=== PATIENT | female | born 1935 | race Caucasian/White ===

== ENCOUNTER 2018-03-11 11:34 | Emergency (ER) | payer MEDICARE, BC ==
[~2018-03-11] VITALS: Ht 162.6 cm; Wt 53.6 kg
[2018-03-11 12:02] LABS: BASOPHILS # (AUTO) 0.2 X10'3 (0-0.2); BASOPHILS % (AUTO) 2.7 % (0-1); EOSINOPHILS # (AUTO) 0.9 X10'3 (0-0.9); EOSINOPHILS % (AUTO) 10.3 % (0-6); HEMATOCRIT 28.8 % (35.0-45.0); HEMOGLOBIN 9.5 g/dl (12.0-16.0); LYMPHOCYTES # (AUTO) 1.2 X10'3 (1.1-4.8); LYMPHOCYTES % (AUTO) 13.9 % (21-51); MEAN CORPUSCULAR HEMOGLOBIN 28.7 PG (27.0-31.0); MEAN CORPUSCULAR HGB CONC 33.1 % (33.0-36.5); MEAN CORPUSCULAR VOLUME 86.8 FL (78-98); MEAN PLATELET VOLUME 8.2 FL (7.4-10.4); MONOCYTES # (AUTO) 0.5 X10'3 (0-0.9); MONOCYTES % (AUTO) 5.7 % (2-12); NEUTROPHILS # (AUTO) 5.6 X10'3 (1.8-7.7); NEUTROPHILS % (AUTO) 67.4 % (42-75); PLATELET COUNT 403 X10'3 (140-440); RED BLOOD COUNT 3.31 X10'6 (4.20-5.60); RED CELL DISTRIBUTION WIDTH 15.1 % (11.5-14.5); WHITE BLOOD COUNT 8.4 X10'3 (4.5-11.0)
[2018-03-11 12:17] LABS: ALANINE AMINOTRANSFERASE 16 U/L (12-78); ALBUMIN 3.5 G/DL (3.4-5.0); ALKALINE PHOSPHATASE 84 IU/L (46-116); ANION GAP 9 (8-16); ASPARTATE AMINO TRANSFERASE 13 U/L (10-37); BILIRUBIN,TOTAL 0.2 MG/DL (0.1-1.0); BLOOD UREA NITROGEN 21 MG/DL (7-18); BUN/CREATININE RATIO 20.6 (6.6-38.0); CALCIUM 9.3 MG/DL (8.5-10.1); CHLORIDE 104 MMOL/L (99-107); CREATININE 1.02 MG/DL (0.40-0.90); GLUCOSE 99 MG/DL (70-104); POTASSIUM 3.8 MMOL/L (3.5-5.1); SODIUM 141 MMOL/L (135-145); TOTAL CARBON DIOXIDE 28.3 MMOL/L (24-32); eGFR 52 ML/MIN
[2018-03-11 12:31] LABS: BASOPHILS % (MANUAL) 3 % (0-1); EOSINOPHILS % (MANUAL) 11 % (0-6); LARGE PLATELETS FEW; LYMPHOCYTES % (MANUAL) 16 % (21-51); MONOCYTES % (MANUAL) 5 % (2-12); NEUTROPHILS % (MANUAL) 65 % (42-75); PLATELET ESTIMATE NORMAL; POLYCHROMASIA FEW; TOTAL CELLS COUNTED 100
[2018-03-11 13:10] LABS: PARTIAL THROMBOPLASTIN TIME 24 SECONDS (22-32); PROTHROMBIN TIME 10.2 SECONDS (9.0-12.0)
[2018-03-11] MEDS ORDERED: normal saline 1000ML IV soln IVB ONE (13:40)
[2018-03-11] MEDS ORDERED: iron sucrose complex injection 100 MG in normal saline 100ml IV soln 95 ML IV ONE (13:45)
[2018-03-11 16:29] VITALS: BP 132/61
== END 2018-03-11 16:31 | disposition home or self-care (01) ==
LOC: ER 11:35
DX: D50.9 Iron deficiency anemia, unspecified (principal); R06.02 Shortness of breath; J45.909 Unspecified asthma, uncomplicated; Z98.890 Other specified postprocedural states; Z88.5 Allergy status to narcotic agent
CPT/HCPCS: 36415; 71045; 80053; 84484; 85025; 85610; 85730; 93005; 96365; 96366; 99285; J7030

== ENCOUNTER 2018-08-26 12:49 | Observation (INO) | payer MEDICARE, BC ==
[~2018-08-26] VITALS: Ht 157.5 cm; Wt 52.0 kg
[2018-08-26 14:13] LABS: BASOPHILS # (AUTO) 0.1 X10'3 (0-0.2); BASOPHILS % (AUTO) 1.2 % (0-1); EOSINOPHILS # (AUTO) 1.5 X10'3 (0-0.9); HEMATOCRIT 23.1 % (35.0-45.0); HEMOGLOBIN 7.3 g/dl (12.0-16.0); LYMPHOCYTES # (AUTO) 1.1 X10'3 (1.1-4.8); LYMPHOCYTES % (AUTO) 9.5 % (21-51); MEAN CORPUSCULAR HEMOGLOBIN 28.6 PG (27.0-31.0); MEAN CORPUSCULAR HGB CONC 31.7 % (33.0-36.5); MEAN CORPUSCULAR VOLUME 90.2 FL (78-98); MEAN PLATELET VOLUME 9.1 FL (7.4-10.4); MONOCYTES # (AUTO) 0.6 X10'3 (0-0.9); MONOCYTES % (AUTO) 5.6 % (2-12); NEUTROPHILS % (AUTO) 70.7 % (42-75); PLATELET COUNT 370 X10'3 (140-440); RED BLOOD COUNT 2.56 X10'6 (4.20-5.60); RED CELL DISTRIBUTION WIDTH 15.9 % (11.5-14.5)
[2018-08-26 14:25] LABS: ALANINE AMINOTRANSFERASE 16 U/L (12-78); ALBUMIN 3.4 G/DL (3.4-5.0); ALKALINE PHOSPHATASE 77 IU/L (46-116); ANION GAP 9 (8-16); ASPARTATE AMINO TRANSFERASE 14 U/L (10-37); BILIRUBIN,TOTAL 0.2 MG/DL (0.1-1.0); BLOOD UREA NITROGEN 23 MG/DL (7-18); BUN/CREATININE RATIO 22.5 (6.6-38.0); CALCIUM 9.2 MG/DL (8.5-10.1); CHLORIDE 103 MMOL/L (99-107); CREATININE 1.02 MG/DL (0.40-0.90); GLUCOSE 101 MG/DL (70-104); POTASSIUM 4.1 MMOL/L (3.5-5.1); SODIUM 141 MMOL/L (135-145); TOTAL CARBON DIOXIDE 29.2 MMOL/L (24-32); TOTAL PROTEIN 6.7 G/DL (6.4-8.2); eGFR 52 ML/MIN
[2018-08-26 14:38] LABS: WHITE BLOOD COUNT 12.3 X10'3 (4.5-11.0)
[2018-08-26 14:39] LABS: PLATELET ESTIMATE NORMAL
[2018-08-26 14:40] LABS: ANISOCYTOSIS 1+; POLYCHROMASIA 1+
[2018-08-26] MEDS ORDERED: magnesium hydroxide 30ml (MOM) UD suspension PO PRN (16:00)
[2018-08-26] MEDS ORDERED: mag hydrox/Alum hydrox/simeth 30ml oral suspension PO PRN (16:00)
[2018-08-26] MEDS ORDERED: acetaminophen 325mg tablet PO PRN ×2 (16:00)
[2018-08-26] MEDS ORDERED: ondansetron/PF 4mg/2ml inj IV PRN (16:00)
[2018-08-26 16:23] VITALS: BP 149/117
[2018-08-26 16:35] VITALS: BP 138/65
[2018-08-26 17:40] VITALS: BP 138/86
[2018-08-26 18:40] VITALS: BP 135/70
[2018-08-26 20:00] VITALS: BP 114/70
[2018-08-26] MEDS ORDERED: TRAM50TA2 PO (20:26)
[2018-08-26] MEDS ORDERED: BECL10.6 PO (20:29)
[2018-08-26] MEDS ORDERED: MONT10TA24 PO (20:29)
[2018-08-26] MEDS ORDERED: temazepam 15mg capsule PO PRN (21:00)
[2018-08-26 21:36] LABS: BASOPHILS # (AUTO) 0.2 X10'3 (0-0.2); BASOPHILS % (AUTO) 1.8 % (0-1); EOSINOPHILS # (AUTO) 1.6 X10'3 (0-0.9); EOSINOPHILS % (AUTO) 16.8 % (0-6); HEMATOCRIT 27.3 % (35.0-45.0); HEMOGLOBIN 8.8 g/dl (12.0-16.0); LYMPHOCYTES # (AUTO) 1.4 X10'3 (1.1-4.8); LYMPHOCYTES % (AUTO) 14.8 % (21-51); MEAN CORPUSCULAR HEMOGLOBIN 28.6 PG (27.0-31.0); MEAN CORPUSCULAR HGB CONC 32.4 % (33.0-36.5); MEAN CORPUSCULAR VOLUME 88.3 FL (78-98); MEAN PLATELET VOLUME 8.2 FL (7.4-10.4); MONOCYTES # (AUTO) 0.6 X10'3 (0-0.9); MONOCYTES % (AUTO) 6.6 % (2-12); NEUTROPHILS # (AUTO) 5.9 X10'3 (1.8-7.7); PLATELET COUNT 405 X10'3 (140-440); RED BLOOD COUNT 3.09 X10'6 (4.20-5.60); WHITE BLOOD COUNT 9.8 X10'3 (4.5-11.0)
== END 2018-08-26 22:20 | disposition home or self-care (01) ==
LOC: ER 12:49 → ED HOLD 16:00 → SUR 3N 18:10
PROVIDERS: ADMIT Family Medicine; ATTEND Family Medicine
DX: D64.9 Anemia, unspecified (principal); I10 Essential (primary) hypertension; J45.909 Unspecified asthma, uncomplicated; R42 Dizziness and giddiness; Z90.710 Acquired absence of both cervix and uterus
CPT/HCPCS: 36415; 36430; 80053; 82607; 82746; 85025; 86885; 86900; 86901; 86920; 87070; 99291; G0378; P9016

== ENCOUNTER 2021-02-22 11:24 | Emergency (ER) | payer MEDICARE, BC ==
[~2021-02-22] VITALS: Ht 157.5 cm; Wt 50.9 kg
[~2021-02-22 11:24] MED LIST: BECL10.6 PO; MONT10TA32 PO; TRAM50TA2 PO
[2021-02-22 13:32] LABS: EOSINOPHILS # (AUTO) 0.2 X10'3 (0-0.9); EOSINOPHILS % (AUTO) 2.3 % (0-6); HEMOGLOBIN 11.2 g/dl (12.0-16.0); LYMPHOCYTES # (AUTO) 0.9 X10'3 (1.1-4.8); MONOCYTES # (AUTO) 0.4 X10'3 (0-0.9)
[2021-02-22 13:33] LABS: BASOPHILS # (AUTO) 0.1 X10'3 (0-0.2); BASOPHILS % (AUTO) 1.5 % (0-1); HEMATOCRIT 35.2 % (35.0-45.0); LYMPHOCYTES % (AUTO) 10.6 % (21-51); MEAN CORPUSCULAR HEMOGLOBIN 29.3 PG (27.0-31.0); MEAN CORPUSCULAR HGB CONC 31.7 g/dL (33.0-36.5); MEAN CORPUSCULAR VOLUME 92.3 FL (78-98); MEAN PLATELET VOLUME 8.9 FL (7.4-10.4); NEUTROPHILS # (AUTO) 6.5 X10'3 (1.8-7.7); NEUTROPHILS % (AUTO) 80.6 % (42-75); PLATELET COUNT 348 X10'3 (140-440); RED BLOOD COUNT 3.82 X10'6 (4.20-5.60); WHITE BLOOD COUNT 8.1 X10'3 (4.5-11.0)
[2021-02-22 13:45] LABS: ALANINE AMINOTRANSFERASE 17 U/L (12-78); ALBUMIN 3.7 G/DL (3.4-5.0); ALBUMIN/GLOBULIN RATIO 1.3 (1.1-1.5); ALKALINE PHOSPHATASE 61 IU/L (46-116); ANION GAP 11 (8-16); ASPARTATE AMINO TRANSFERASE 9 U/L (10-37); BILIRUBIN,TOTAL 0.2 MG/DL (0.1-1.0); BLOOD UREA NITROGEN 23 MG/DL (7-18); BUN/CREATININE RATIO 22.5 (6.6-38.0); CALCIUM 9.4 MG/DL (8.5-10.1); CHLORIDE 107 MMOL/L (99-107); CREATININE 1.02 MG/DL (0.40-0.90); GLUCOSE 111 MG/DL (70-104); POTASSIUM 3.7 MMOL/L (3.5-5.1); SODIUM 146 MMOL/L (135-145); TOTAL PROTEIN 6.5 G/DL (6.4-8.2); eGFR 52 ML/MIN
[2021-02-22 13:59] LABS: ANISOCYTOSIS 2+; LARGE PLATELETS FEW; PLATELET ESTIMATE NORMAL
[2021-02-22 14:00] LABS: MICROCYTOSIS FEW
[2021-02-22 17:43] VITALS: BP 163/85
[2021-02-22] MEDS ORDERED: PRED20TA PO (18:02)
[2021-02-22] MEDS ORDERED: ALBU8HFA PO (18:02)
== END 2021-02-22 18:12 | disposition home or self-care (01) ==
LOC: ER 11:25
DX: R06.02 Shortness of breath (principal); R06.00 Dyspnea, unspecified; I10 Essential (primary) hypertension; J45.909 Unspecified asthma, uncomplicated; D64.9 Anemia, unspecified; Z98.890 Other specified postprocedural states; Z88.6 Allergy status to analgesic agent; Z86.2 Personal history of diseases of the blood and blood-forming organs and certain disorders involving the immune mechanism
CPT/HCPCS: 36415; 71045; 71250; 80053; 83880; 84484; 85008; 85025; 93005; 99285

== ENCOUNTER 2021-04-18 15:38 | Emergency (ER) | payer MEDICARE, BC ==
[~2021-04-18] VITALS: Ht 157.5 cm; Wt 50.0 kg
[2021-04-18] MEDS ORDERED: normal saline 1000ML IV soln IVB ONE (16:30)
[2021-04-18 17:21] LABS: BASOPHILS # (AUTO) 0.1 X10'3 (0-0.2); BASOPHILS % (AUTO) 0.6 % (0-1); EOSINOPHILS # (AUTO) 0.1 X10'3 (0-0.9); EOSINOPHILS % (AUTO) 1.4 % (0-6); HEMATOCRIT 29.9 % (35.0-45.0); HEMOGLOBIN 9.8 g/dl (12.0-16.0); LYMPHOCYTES # (AUTO) 1.2 X10'3 (1.1-4.8); LYMPHOCYTES % (AUTO) 11.9 % (21-51); MEAN CORPUSCULAR HEMOGLOBIN 29.6 PG (27.0-31.0); MEAN CORPUSCULAR HGB CONC 32.7 g/dL (33.0-36.5); MEAN CORPUSCULAR VOLUME 90.6 FL (78-98); MEAN PLATELET VOLUME 8.7 FL (7.4-10.4); MONOCYTES # (AUTO) 0.6 X10'3 (0-0.9); MONOCYTES % (AUTO) 5.7 % (2-12); NEUTROPHILS % (AUTO) 80.4 % (42-75); PLATELET COUNT 401 X10'3 (140-440); RED BLOOD COUNT 3.29 X10'6 (4.20-5.60); RED CELL DISTRIBUTION WIDTH 16.5 % (11.5-14.5)
[2021-04-18 17:34] LABS: ALANINE AMINOTRANSFERASE 14 U/L (12-78); ALBUMIN 3.6 G/DL (3.4-5.0); ALBUMIN/GLOBULIN RATIO 1.2 (1.1-1.5); ALKALINE PHOSPHATASE 55 IU/L (46-116); ANION GAP 9 (8-16); ASPARTATE AMINO TRANSFERASE 10 U/L (10-37); BILIRUBIN,TOTAL 0.2 MG/DL (0.1-1.0); BLOOD UREA NITROGEN 20 MG/DL (7-18); BUN/CREATININE RATIO 21.1 (6.6-38.0); CALCIUM 9.9 MG/DL (8.5-10.1); CHLORIDE 103 MMOL/L (99-107); CREATININE 0.95 MG/DL (0.40-0.90); GLUCOSE 95 MG/DL (70-104); POTASSIUM 3.2 MMOL/L (3.5-5.1); SODIUM 144 MMOL/L (135-145); TOTAL CARBON DIOXIDE 31.7 MMOL/L (24-32); TOTAL PROTEIN 6.6 G/DL (6.4-8.2); eGFR 56 ML/MIN
--- NOTE | 2021-04-18 18:38 | NUR ---
PT REFUSED URINE SAMPLE. STATED" IT HAS NOTHING TO DO WITH WHY I AM HERE".
--- NOTE | 2021-04-18 18:45 | NUR ---
PATIENT AWAITNG DISCHARGE , PLAN OF CARE UPDATED , IVF WITH NS 500 ML BOLUS RUNNING PATENT WITHOUT INCIDENT. ORTHOSTA VS COMPLETED
--- NOTE | 2021-04-18 19:49 | NUR ---
DR GARCIA NOTIFIED THAT PATIENT PASSED GAIT TEST WITHOUT INCIDENT AND THAT HER ORTOSTIC VS ARE COMPLETED
[2021-04-18 20:09] VITALS: BP 143/89
== END 2021-04-18 20:10 | disposition home or self-care (01) ==
LOC: ER 15:38
DX: R42 Dizziness and giddiness (principal); I10 Essential (primary) hypertension; J45.909 Unspecified asthma, uncomplicated; Z86.2 Personal history of diseases of the blood and blood-forming organs and certain disorders involving the immune mechanism; Z88.6 Allergy status to analgesic agent; Z79.899 Other long term (current) drug therapy
CPT/HCPCS: 36415; 80053; 85025; 93005; 99285; J7030

== ENCOUNTER 2022-01-27 19:07 | Emergency (ER) | payer MEDICARE, BC ==
[~2022-01-27] VITALS: Ht 157.5 cm; Wt 47.0 kg
[~2022-01-27 19:07] MED LIST changes: +MONT-40 PO; -MONT10TA32 PO
[2022-01-27 20:10] LABS: BASOPHILS # (AUTO) 0.1 X10'3 (0-0.2); BASOPHILS % (AUTO) 1.3 % (0-1); EOSINOPHILS # (AUTO) 0.2 X10'3 (0-0.9); EOSINOPHILS % (AUTO) 1.7 % (0-6); HEMATOCRIT 24.9 % (35.0-45.0); HEMOGLOBIN 7.7 g/dl (12.0-16.0); LYMPHOCYTES # (AUTO) 0.5 X10'3 (1.1-4.8); LYMPHOCYTES % (AUTO) 4.7 % (21-51); MEAN CORPUSCULAR HEMOGLOBIN 24.2 PG (27.0-31.0); MEAN CORPUSCULAR VOLUME 78.1 FL (78-98); MEAN PLATELET VOLUME 8.2 FL (7.4-10.4); MONOCYTES # (AUTO) 0.5 X10'3 (0-0.9); MONOCYTES % (AUTO) 4.3 % (2-12); NEUTROPHILS # (AUTO) 9.3 X10'3 (1.8-7.7); PLATELET COUNT 334 X10'3 (140-440); RED BLOOD COUNT 3.19 X10'6 (4.20-5.60); RED CELL DISTRIBUTION WIDTH 21.9 % (11.5-14.5); WHITE BLOOD COUNT 10.6 X10'3 (4.5-11.0)
[2022-01-27 20:27] LABS: ALANINE AMINOTRANSFERASE 14 U/L (12-78); ALBUMIN 3.4 G/DL (3.4-5.0); ALBUMIN/GLOBULIN RATIO 1.1 (1.1-1.5); ALKALINE PHOSPHATASE 68 IU/L (46-116); ANION GAP 7 (8-16); ASPARTATE AMINO TRANSFERASE 9 U/L (10-37); BILIRUBIN,TOTAL 0.1 MG/DL (0.1-1.0); BLOOD UREA NITROGEN 25 MG/DL (7-18); BUN/CREATININE RATIO 24.5 (6.6-38.0); CALCIUM 8.7 MG/DL (8.5-10.1); CHLORIDE 108 MMOL/L (99-107); CREATININE 1.02 MG/DL (0.40-0.90); GLUCOSE 107 MG/DL (70-104); POTASSIUM 3.7 MMOL/L (3.5-5.1); SODIUM 143 MMOL/L (135-145); TOTAL CARBON DIOXIDE 28.1 MMOL/L (24-32); TOTAL PROTEIN 6.4 G/DL (6.4-8.2); eGFR 52 ML/MIN
--- NOTE | 2022-01-27 20:30 | NUR ---
Pt pink, alert, no acute/resp distress. Bed in lowest position, wheels locked, rail 2/2 up, call ash in reach. Will continue to monitor for acute changes and needs. Family at bedside. PIV c/d/i s complication or adverse.
[2022-01-27 21:29] VITALS: BP 132/64
--- NOTE | 2022-01-27 21:30 | NUR ---
Pt pink, alert, no acute/resp distress. Bed in lowest position, wheels locked, rail 2/2 up, call ash in reach. Will continue to monitor for acute changes and needs. Family at bedside. PIV site c/d/i s complication or adverse.
[2022-01-27 21:35] VITALS: BP 118/84
[2022-01-27 21:45] VITALS: BP 156/74
[2022-01-27 21:55] VITALS: BP 156/72
[2022-01-27 22:14] LABS: ANISOCYTOSIS 3+; HYPOCHROMASIA 3+; MICROCYTOSIS 1+; PLATELET ESTIMATE NORMAL; TOTAL CELLS COUNTED 100
[2022-01-27 22:15] LABS: ELLIPTOCYTES 1+
[2022-01-27 22:16] LABS: HYPERSEGMENTED NEUTROPHILS FEW; POLYCHROMASIA FEW
[2022-01-27 22:30] VITALS: BP 142/74
--- NOTE | 2022-01-27 22:31 | NUR ---
Pt pink, alert, no acute/resp distress. Bed in lowest position, wheels locked, rail 2/2 up, call ash in reach. Will continue to monitor for acute changes and needs. Family at bedside. PIV site c/d/i s complicaiton or adverse. No issues with transfusion or s/s of reaction.
[2022-01-27] MEDS ORDERED: aspirin 325mg tablet PO ONE (22:40)
[2022-01-27] MEDS ORDERED: traMADol 50MG tablet PO ONE (22:40)
--- NOTE | 2022-01-27 22:52 | NUR ---
Infusion complete, no s/s adverse reaction or complication. PIV d/c fully intact s compication or adverse.
[2022-01-27 22:53] VITALS: BP 147/68
== END 2022-01-27 22:54 | disposition home or self-care (01) ==
LOC: ER 19:08
DX: D64.9 Anemia, unspecified (principal); I10 Essential (primary) hypertension; J45.909 Unspecified asthma, uncomplicated; Z88.5 Allergy status to narcotic agent; Z79.899 Other long term (current) drug therapy
CPT/HCPCS: 36415; 36430; 71045; 80053; 83735; 83880; 84145; 84484; 85007; 85025; 85610; 86885; 86900; 86901; 86920; 93005; 99285; P9016

== ENCOUNTER 2022-03-12 09:55 | Emergency (ER) | payer MEDICARE, BC ==
[~2022-03-12] VITALS: Ht 157.5 cm; Wt 45.0 kg
--- NOTE | 2022-03-12 11:11 | NUR ---
Patient to Xray.
[2022-03-12 11:46] LABS: BASOPHILS # (AUTO) 0.2 X10'3 (0-0.2); HEMOGLOBIN 7.4 g/dl (12.0-16.0); MONOCYTES # (AUTO) 0.6 X10'3 (0-0.9)
[2022-03-12 11:48] LABS: BASOPHILS % (AUTO) 2.2 % (0-1); EOSINOPHILS # (AUTO) 0.4 X10'3 (0-0.9); HEMATOCRIT 24.3 % (35.0-45.0); LYMPHOCYTES # (AUTO) 0.7 X10'3 (1.1-4.8); LYMPHOCYTES % (AUTO) 7.8 % (21-51); MEAN CORPUSCULAR HEMOGLOBIN 22.9 PG (27.0-31.0); MEAN CORPUSCULAR HGB CONC 30.4 g/dL (33.0-36.5); MEAN CORPUSCULAR VOLUME 75.3 FL (78-98); MEAN PLATELET VOLUME 8.2 FL (7.4-10.4); MONOCYTES % (AUTO) 6.9 % (2-12); NEUTROPHILS % (AUTO) 79.1 % (42-75); PLATELET COUNT 668 X10'3 (140-440); RED BLOOD COUNT 3.23 X10'6 (4.20-5.60); RED CELL DISTRIBUTION WIDTH 22.9 % (11.5-14.5); WHITE BLOOD COUNT 8.9 X10'3 (4.5-11.0)
[2022-03-12 12:03] LABS: ALANINE AMINOTRANSFERASE 13 U/L (12-78); ALBUMIN 3.6 G/DL (3.4-5.0); ALBUMIN/GLOBULIN RATIO 1.2 (1.1-1.5); ALKALINE PHOSPHATASE 67 IU/L (46-116); ANION GAP 11 (8-16); ASPARTATE AMINO TRANSFERASE 11 U/L (10-37); BILIRUBIN,TOTAL 0.3 MG/DL (0.1-1.0); BLOOD UREA NITROGEN 24 MG/DL (7-18); BUN/CREATININE RATIO 24.5 (6.6-38.0); CALCIUM 9.3 MG/DL (8.5-10.1); CHLORIDE 107 MMOL/L (99-107); CREATININE 0.98 MG/DL (0.40-0.90); GLUCOSE 145 MG/DL (70-104); POTASSIUM 3.8 MMOL/L (3.5-5.1); SODIUM 145 MMOL/L (135-145); TOTAL CARBON DIOXIDE 27.5 MMOL/L (24-32); TOTAL PROTEIN 6.7 G/DL (6.4-8.2); eGFR 54 ML/MIN
[2022-03-12 12:20] LABS: ANISOCYTOSIS 3+; HYPOCHROMASIA 1+; MICROCYTOSIS 1+; PLATELET ESTIMATE INCREASED; POLYCHROMASIA 1+
[2022-03-12 12:21] LABS: STOMATOCYTES 1+
[2022-03-12] MEDS ORDERED: iron dextran complex inj. 0 MG in normal saline 500ml IV soln 500 ML IV ONE (13:10)
[2022-03-12] MEDS ORDERED: iron sucrose complex injection 100 MG in normal saline 100ml IV soln 95 ML IV SCH (14:14)
[2022-03-12] MEDS ORDERED: iron sucrose complex injection 100 MG in normal saline 100ml IV soln 100 ML IV SCH (14:22)
[2022-03-12 15:50] VITALS: BP 117/54
== END 2022-03-12 15:53 | disposition home or self-care (01) ==
LOC: ER 09:56
DX: D50.0 Iron deficiency anemia secondary to blood loss (chronic) (principal); R06.02 Shortness of breath; R53.1 Weakness; I10 Essential (primary) hypertension; J45.909 Unspecified asthma, uncomplicated; Z86.2 Personal history of diseases of the blood and blood-forming organs and certain disorders involving the immune mechanism; Z98.890 Other specified postprocedural states; Z88.5 Allergy status to narcotic agent; Z79.899 Other long term (current) drug therapy
CPT/HCPCS: 36415; 71045; 80053; 83880; 84484; 85008; 85025; 93005; 96374; 99285; J1756; J3490; 96365; J7030

== ENCOUNTER 2022-04-26 10:46 | Emergency (ER) | payer MEDICARE, BC ==
[~2022-04-26] VITALS: Ht 152.4 cm; Wt 47.7 kg
[2022-04-26 11:30] LABS: BASOPHILS # (AUTO) 0.2 X10'3 (0-0.2); EOSINOPHILS # (AUTO) 0.3 X10'3 (0-0.9); HEMATOCRIT 28.1 % (35.0-45.0); HEMOGLOBIN 8.9 g/dl (12.0-16.0); LYMPHOCYTES # (AUTO) 0.7 X10'3 (1.1-4.8); LYMPHOCYTES % (AUTO) 8.4 % (21-51); MEAN CORPUSCULAR HEMOGLOBIN 25.4 PG (27.0-31.0); MEAN CORPUSCULAR HGB CONC 31.8 g/dL (33.0-36.5); MEAN PLATELET VOLUME 8.1 FL (7.4-10.4); MONOCYTES # (AUTO) 0.4 X10'3 (0-0.9); MONOCYTES % (AUTO) 5.1 % (2-12); NEUTROPHILS # (AUTO) 6.6 X10'3 (1.8-7.7); NEUTROPHILS % (AUTO) 80.5 % (42-75); PLATELET COUNT 309 X10'3 (140-440); RED BLOOD COUNT 3.51 X10'6 (4.20-5.60); RED CELL DISTRIBUTION WIDTH 21.8 % (11.5-14.5); WHITE BLOOD COUNT 8.2 X10'3 (4.5-11.0)
[2022-04-26 11:45] LABS: ALANINE AMINOTRANSFERASE 12 U/L (12-78); ALBUMIN 3.1 G/DL (3.4-5.0); ALKALINE PHOSPHATASE 66 IU/L (46-116); ANION GAP 8 (8-16); ASPARTATE AMINO TRANSFERASE 14 U/L (10-37); BILIRUBIN,TOTAL 0.3 MG/DL (0.1-1.0); BLOOD UREA NITROGEN 19 MG/DL (7-18); BUN/CREATININE RATIO 26.4 (6.6-38.0); CALCIUM 8.9 MG/DL (8.5-10.1); CHLORIDE 105 MMOL/L (99-107); CREATININE 0.72 MG/DL (0.40-0.90); GLUCOSE 113 MG/DL (70-104); POTASSIUM 3.7 MMOL/L (3.5-5.1); SODIUM 141 MMOL/L (135-145); TOTAL PROTEIN 6.2 G/DL (6.4-8.2); eGFR 77 ML/MIN
[2022-04-26 12:30] LABS: ANISOCYTOSIS 3+; LARGE PLATELETS FEW; PLATELET ESTIMATE NORMAL
[2022-04-26 12:31] LABS: HYPOCHROMASIA 1+
[2022-04-26] MEDS ORDERED: ondansetron 4mg rapidly disintigrating tab PO ONE (15:05)
[2022-04-26 15:57] LABS: LIPASE 132 U/L (73-393)
--- NOTE | 2022-04-26 17:30 | NUR ---
Assumed care of pt.
--- NOTE | 2022-04-26 17:38 | NUR ---
Pt refused COVID test.
[2022-04-26 17:42] VITALS: BP 163/89
--- NOTE | 2022-04-26 18:15 | NUR ---
Pt d/c home with neighbor in good condition, instructions given.
== END 2022-04-26 18:29 | disposition home or self-care (01) ==
LOC: ER 10:46
DX: D64.9 Anemia, unspecified (principal); Z20.822 Contact with and (suspected) exposure to COVID-19; R53.1 Weakness; R06.02 Shortness of breath; I10 Essential (primary) hypertension; J45.909 Unspecified asthma, uncomplicated; Z88.5 Allergy status to narcotic agent; Z79.899 Other long term (current) drug therapy
CPT/HCPCS: 36415; 71045; 80053; 83690; 83880; 84484; 85008; 85025; 87635; 93005; 99285; C9803

== ENCOUNTER 2022-06-05 11:12 | Emergency (ER) | payer MEDICARE, BC ==
[~2022-06-05] VITALS: Ht 157.5 cm; Wt 43.6 kg
[2022-06-05 11:37] VITALS: BP 133/70
[2022-06-05 13:44] LABS: BASOPHILS # (AUTO) 0.1 X10'3 (0-0.2); BASOPHILS % (AUTO) 1.1 % (0-1); EOSINOPHILS # (AUTO) 0.2 X10'3 (0-0.9); EOSINOPHILS % (AUTO) 1.6 % (0-6); HEMATOCRIT 31.8 % (35.0-45.0); LYMPHOCYTES # (AUTO) 0.8 X10'3 (1.1-4.8); LYMPHOCYTES % (AUTO) 7.6 % (21-51); MEAN CORPUSCULAR HEMOGLOBIN 25.6 PG (27.0-31.0); MEAN CORPUSCULAR HGB CONC 31.4 g/dL (33.0-36.5); MEAN CORPUSCULAR VOLUME 81.4 FL (78-98); MEAN PLATELET VOLUME 8.5 FL (7.4-10.4); MONOCYTES # (AUTO) 0.4 X10'3 (0-0.9); MONOCYTES % (AUTO) 3.3 % (2-12); NEUTROPHILS # (AUTO) 9.6 X10'3 (1.8-7.7); NEUTROPHILS % (AUTO) 86.4 % (42-75); PLATELET COUNT 375 X10'3 (140-440); RED CELL DISTRIBUTION WIDTH 26.5 % (11.5-14.5); WHITE BLOOD COUNT 11.1 X10'3 (4.5-11.0)
[2022-06-05 14:00] LABS: ALBUMIN 3.7 G/DL (3.4-5.0); ANION GAP 7 (8-16); BILIRUBIN,TOTAL 0.1 MG/DL (0.1-1.0); BLOOD UREA NITROGEN 25 MG/DL (7-18); BUN/CREATININE RATIO 27.2 (6.6-38.0); CALCIUM 9.5 MG/DL (8.5-10.1); CHLORIDE 105 MMOL/L (99-107); CREATININE 0.92 MG/DL (0.40-0.90); GLUCOSE 120 MG/DL (70-104); POTASSIUM 3.4 MMOL/L (3.5-5.1); SODIUM 142 MMOL/L (135-145); TOTAL CARBON DIOXIDE 30.4 MMOL/L (24-32); TOTAL PROTEIN 6.6 G/DL (6.4-8.2); eGFR 58 ML/MIN
[2022-06-05 14:01] LABS: ALANINE AMINOTRANSFERASE 14 U/L (12-78); ALBUMIN/GLOBULIN RATIO 1.3 (1.1-1.5); ALKALINE PHOSPHATASE 80 IU/L (46-116); ASPARTATE AMINO TRANSFERASE 11 U/L (10-37)
[2022-06-05 14:02] LABS: ANISOCYTOSIS 3+; ELLIPTOCYTES FEW; MICROCYTOSIS 1+; PLATELET ESTIMATE NORMAL
[2022-06-05 14:03] LABS: HYPOCHROMASIA 1+; LARGE PLATELETS FEW
[2022-06-05] MEDS ORDERED: ALBU8HFA PO (14:40)
[2022-06-05] MEDS ORDERED: BENZ-38 PO (14:40)
== END 2022-06-05 14:59 | disposition home or self-care (01) ==
LOC: ER 11:12
DX: R05.9 Cough, unspecified (principal); Z20.822 Contact with and (suspected) exposure to COVID-19; R06.02 Shortness of breath; J02.9 Acute pharyngitis, unspecified; I10 Essential (primary) hypertension; J45.909 Unspecified asthma, uncomplicated; Z86.2 Personal history of diseases of the blood and blood-forming organs and certain disorders involving the immune mechanism; Z98.890 Other specified postprocedural states; Z88.5 Allergy status to narcotic agent; Z88.8 Allergy status to other drugs, medicaments and biological substances; Z79.899 Other long term (current) drug therapy
CPT/HCPCS: 36415; 71045; 80053; 84145; 84484; 85008; 85025; 87502; 87503; 87635; 99284; C9803

== ENCOUNTER 2022-06-07 17:34 | Emergency (ER) | payer MEDICARE, BC ==
[~2022-06-07] VITALS: Ht 157.5 cm; Wt 45.5 kg
[~2022-06-07 17:34] MED LIST changes: +ALBU8HFA PO; +BENZ-38 PO
[2022-06-07 18:03] VITALS: BP 145/73
== END 2022-06-07 23:00 | disposition left against medical advice (07) ==
LOC: ER 17:34
DX: R06.02 Shortness of breath (principal); Z53.21 Procedure and treatment not carried out due to patient leaving prior to being seen by health care provider
CPT/HCPCS: 93005

== ENCOUNTER 2022-08-09 15:37 | Emergency (ER) | payer MEDICARE, BC ==
[~2022-08-09] VITALS: Ht 157.5 cm; Wt 47.7 kg
[~2022-08-09 15:37] MED LIST changes: -ALBU8HFA PO; -BENZ-38 PO
[2022-08-09 16:44] LABS: BASOPHILS # (AUTO) 0.1 X10'3 (0-0.2); BASOPHILS % (AUTO) 1.4 % (0-1); EOSINOPHILS # (AUTO) 0.5 X10'3 (0-0.9); EOSINOPHILS % (AUTO) 5.3 % (0-6); HEMATOCRIT 25.8 % (35.0-45.0); HEMOGLOBIN 8.4 g/dl (12.0-16.0); LYMPHOCYTES # (AUTO) 0.5 X10'3 (1.1-4.8); LYMPHOCYTES % (AUTO) 6.1 % (21-51); MEAN CORPUSCULAR HEMOGLOBIN 28.1 PG (27.0-31.0); MEAN CORPUSCULAR HGB CONC 32.5 g/dL (33.0-36.5); MEAN CORPUSCULAR VOLUME 86.4 FL (78-98); MEAN PLATELET VOLUME 8.3 FL (7.4-10.4); MONOCYTES # (AUTO) 0.4 X10'3 (0-0.9); MONOCYTES % (AUTO) 4.8 % (2-12); NEUTROPHILS # (AUTO) 7.1 X10'3 (1.8-7.7); NEUTROPHILS % (AUTO) 82.4 % (42-75); PLATELET COUNT 407 X10'3 (140-440); RED BLOOD COUNT 2.99 X10'6 (4.20-5.60); RED CELL DISTRIBUTION WIDTH 20.1 % (11.5-14.5); WHITE BLOOD COUNT 8.7 X10'3 (4.5-11.0)
[2022-08-09 16:56] LABS: ALANINE AMINOTRANSFERASE 20 U/L (12-78); ALBUMIN 2.7 G/DL (3.4-5.0); ALBUMIN/GLOBULIN RATIO 0.8 (1.1-1.5); ALKALINE PHOSPHATASE 74 IU/L (46-116); ANION GAP 12 (8-16); ASPARTATE AMINO TRANSFERASE 15 U/L (10-37); BILIRUBIN,TOTAL 0.1 MG/DL (0.1-1.0); BLOOD UREA NITROGEN 34 MG/DL (7-18); BUN/CREATININE RATIO 34.7 (6.6-38.0); CALCIUM 8.8 MG/DL (8.5-10.1); CHLORIDE 107 MMOL/L (99-107); CREATININE 0.98 MG/DL (0.40-0.90); GLUCOSE 158 MG/DL (70-104); POTASSIUM 3.3 MMOL/L (3.5-5.1); SODIUM 146 MMOL/L (135-145); TOTAL CARBON DIOXIDE 27.5 MMOL/L (24-32); eGFR 54 ML/MIN
[2022-08-09 17:29] LABS: ANISOCYTOSIS 3+; ELLIPTOCYTES FEW; HYPOCHROMASIA 1+; PLATELET ESTIMATE NORMAL; TEAR DROP CELLS FEW
[2022-08-09 17:30] LABS: MICROCYTOSIS FEW; POLYCHROMASIA 1+
[2022-08-09 17:31] LABS: POIKILOCYTOSIS FEW
[2022-08-09] MEDS ORDERED: ringers solution, lactated 500ml IV solution IV ONE (18:50)
[2022-08-09 19:08] LABS: D-DIMER 0.34 MG/L FEU (0-0.50)
--- NOTE | 2022-08-09 19:18 | NUR ---
PT REFUSNIG COVID TESTS/ FLU TEST ND URINE SAMPLE, PT STAES "COVID TESTS ARE USELESS AND I DONT HAVE COVID, IM ONLY HERE FOR MY LUNGS" NOTIFIED.
[2022-08-09] MEDS ORDERED: mag hydrox/Alum hydrox/simeth 30ml oral suspension PO ONE (22:15)
[2022-08-09 22:22] LABS: CLARITY,URINE SLIGHTLY CLOUDY (Clear); COLOR,URINE YELLOW (Yellow); GLUCOSE, URINE NEGATIVE (Neg); KETONES,URINE NEGATIVE (Neg); LEUKOCYTE ESTERASE ,URINE TRACE (Neg); NITRITES, URINE NEGATIVE (Neg); OCCULT BLOOD,URINE NEGATIVE (Neg); PROTEIN,URINE NEGATIVE (Neg); UROBILINOGEN,URINE 0.2 E.U/dL (0.2-1.0)
[2022-08-09 22:24] LABS: UA COLLECTION TYPE CLN CATCH MIDSTREAM
[2022-08-09 22:33] LABS: BACTERIA,URINE 1+ /HPF (Neg); RBC,URINE 0-2 /HPF (0-2); SQUAMOUS EPITHELIAL CELL,UR FEW /LPF (FEW); TRANSITIONAL EPI CELLS,URINE FEW /HPF
[2022-08-09 22:34] LABS: HYALINE CASTS 0-3 /LPF (NEGATIVE); WBC CLUMPS,URINE FEW /HPF (NEGATIVE)
--- NOTE | 2022-08-09 23:35 | NUR ---
PT GETTING HEADACHE, MADE AWARE
[2022-08-09] MEDS ORDERED: acetaminophen 325mg tablet PO ONE (23:50)
[2022-08-10 00:45] VITALS: BP 142/68
== END 2022-08-10 00:48 | disposition home or self-care (01) ==
LOC: ER 15:37
DX: R53.1 Weakness (principal); R00.2 Palpitations; I10 Essential (primary) hypertension; J45.909 Unspecified asthma, uncomplicated; Z91.041 Radiographic dye allergy status; Z88.7 Allergy status to serum and vaccine
CPT/HCPCS: 36415; 71045; 80053; 81001; 83880; 84439; 84443; 84484; 85008; 85025; 85379; 93005; 96360; 99285; J7120

== ENCOUNTER 2023-04-28 13:16 | Emergency (ER) | payer MEDICARE, BC ==
[~2023-04-28] VITALS: Ht 157.5 cm; Wt 47.7 kg
[2023-04-28 13:38] VITALS: BP 132/77; PULSE 81; RESP 18; O2SAT 96
--- NOTE | 2023-04-28 15:43 | NUR ---
PT WAS GETTING AGGITATED ABOUT THE WAIT AND LEFT WITHOUT BEING SEEN. PT HAD ME CALL HER A RIDE AND LEFT FAST TRACK.
== END 2023-04-28 15:50 | disposition left against medical advice (07) ==
LOC: ER 13:17
DX: R42 Dizziness and giddiness (principal); Z53.21 Procedure and treatment not carried out due to patient leaving prior to being seen by health care provider
CPT/HCPCS: 99281

== ENCOUNTER 2023-05-20 10:05 | Emergency (ER) | payer MEDICARE, BC ==
[~2023-05-20] VITALS: Ht 157.5 cm; Wt 48.1 kg
[2023-05-20 12:16] LABS: BASOPHILS # (AUTO) 0.1 X10'3 (0-0.2); BASOPHILS % (AUTO) 0.9 % (0-1); EOSINOPHILS # (AUTO) 0.1 X10'3 (0-0.9); EOSINOPHILS % (AUTO) 1.9 % (0-6); HEMATOCRIT 25.6 % (35.0-45.0); HEMOGLOBIN 8.2 g/dl (12.0-16.0); LYMPHOCYTES # (AUTO) 0.4 X10'3 (1.1-4.8); LYMPHOCYTES % (AUTO) 6.5 % (21-51); MEAN CORPUSCULAR HEMOGLOBIN 26.6 PG (27.0-31.0); MEAN CORPUSCULAR HGB CONC 31.9 g/dL (33.0-36.5); MEAN CORPUSCULAR VOLUME 83.6 FL (78-98); MEAN PLATELET VOLUME 7.4 FL (7.4-10.4); MONOCYTES # (AUTO) 0.4 X10'3 (0-0.9); MONOCYTES % (AUTO) 6.2 % (2-12); NEUTROPHILS # (AUTO) 5.8 X10'3 (1.8-7.7); NEUTROPHILS % (AUTO) 84.5 % (42-75); PLATELET COUNT 442 X10'3 (140-440); RED BLOOD COUNT 3.06 X10'6 (4.20-5.60); RED CELL DISTRIBUTION WIDTH 20.3 % (11.5-14.5); WHITE BLOOD COUNT 6.8 X10'3 (4.5-11.0)
[2023-05-20 12:30] LABS: ALANINE AMINOTRANSFERASE 15 U/L (12-78); ALBUMIN 3.2 G/DL (3.4-5.0); ALBUMIN/GLOBULIN RATIO 1.1 (1.1-1.5); ALKALINE PHOSPHATASE 68 IU/L (46-116); ANION GAP 6 (8-16); ASPARTATE AMINO TRANSFERASE 11 U/L (10-37); BILIRUBIN,TOTAL 0.2 MG/DL (0.1-1.0); BLOOD UREA NITROGEN 18 MG/DL (7-18); BUN/CREATININE RATIO 19.6 (10.0-20.0); CALCIUM 8.9 MG/DL (8.5-10.1); CHLORIDE 104 MMOL/L (99-107); CREATININE 0.92 MG/DL (0.40-0.90); GLUCOSE 113 MG/DL (70-104); POTASSIUM 3.4 MMOL/L (3.5-5.1); SODIUM 138 MMOL/L (135-145); TOTAL CARBON DIOXIDE 28.1 MMOL/L (24-32); TOTAL PROTEIN 6.2 G/DL (6.4-8.2); eCRCL 34 ML/MIN; eGFR 58 ML/MIN
[2023-05-20 13:13] LABS: BILIRUBIN,URINE NEGATIVE (Neg); CLARITY,URINE CLEAR (Clear); COLOR,URINE STRAW (Yellow); GLUCOSE, URINE NEGATIVE (Neg); KETONES,URINE NEGATIVE (Neg); LEUKOCYTE ESTERASE ,URINE NEGATIVE (Neg); NITRITES, URINE NEGATIVE (Neg); OCCULT BLOOD,URINE NEGATIVE (Neg); PH,URINE 5.5 (4.8-8.0); PROTEIN,URINE NEGATIVE (Neg); UROBILINOGEN,URINE 0.2 E.U/dL (0.2-1.0)
[2023-05-20 13:17] LABS: UA COLLECTION TYPE NON-SPECIFIED
[2023-05-20] MEDS ORDERED: POTA-206 PO (13:21)
[2023-05-20 13:40] VITALS: BP 171/81; PULSE 78; RESP 18; TEMP 97.8; O2SAT 96
[2023-05-20 13:41] LABS: PLATELET ESTIMATE INCREASED
[2023-05-20 13:42] LABS: HYPOCHROMASIA 1+; POLYCHROMASIA 1+
[2023-05-20 13:43] LABS: ANISOCYTOSIS 3+; SCHISTOCYTES FEW
== END 2023-05-20 13:42 | disposition home or self-care (01) ==
LOC: ER 10:06
DX: D64.9 Anemia, unspecified (principal); R53.1 Weakness; E03.9 Hypothyroidism, unspecified; I10 Essential (primary) hypertension; J45.909 Unspecified asthma, uncomplicated
CPT/HCPCS: 36415; 80053; 81003; 85008; 85025; 99284